=== PATIENT | male | born 1955 | race Caucasian/White ===

== ENCOUNTER 2019-09-22 16:29 | Emergency (ER) | payer BC, OTHER ==
[~2019-09-22] VITALS: Ht 182.8 cm; Wt 94.1 kg
--- NOTE | 2019-09-22 17:44 | ED Chest Pain ---
General Chief Complaint: Psych/Social Disorder Stated Complaint: SHAKING,DIZZINESS,NAUSATED Nursing Triage Note: C/O SHAKING, DIZZY,NAUSEA, FEELING OF IMPENDING DOOM. "IM NOT SURE WHAT IS WRONG BUT SOMETHING FEEL LIKE ITS WRONG" ALSO DIFFICULTY SLEEPING FOR MAONTHS AND SITUATIONAL CHANGES Nursing Sepsis Screen: No Definite Risk Source: patient Exam Limitations: no limitations (MATEO BELLA) History of Present Illness Date Seen by Provider: Sep 22, 2019 Time Seen by Provider: 17:30 Initial Comments Patient presents to ER by private conveyance with chief complaint of around noon experiencing a sharp stabbing pulsating pain in his left shoulder. It went away after several minutes. He is unable to reproduce it by movement, deep inspiration or palpation. He's been having a lot of problems with anxiety but denies any suicidal or homicidal ideation. He's had a lot of stress over the past year and a half since his left him and he had started new job and career. He lost 50 pounds over the past year because he stop drinking alcohol. He used to drink 12 beers a day but it's been almost a year and a half since he has been drinking. He does admit to having a single beer at a barbecue last weekend. He denies having history of panic attacks, anxiety disorder or taking any medications for this. He used to follow with Dr. Hopkins before he retired in [place], [place]. He has a history of a heart attack in the 90s and denies history of any methamphetamines or cocaine. He does admit to being a regular marijuana user up until the past year. He says he had a history of being borderline hypertensive but not on any medications for blood pressure, diabetes, cholesterol. (MATEO BELLA) Allergies and Home Medications Allergies Coded Allergies: No Known Drug Allergies (Unverified , 09/22/19) Patient Home Medication List Home Medication List Reviewed: Yes (MATEO BELLA) Review of Systems Review of Systems Constitutional: No chills, No diaphoresis EENTM: No Blurred Vision, No Double Vision Respiratory: Denies Cough, Denies Shortness of Air Cardiovascular: See HPI, Chest Pain (posterior left chest); Denies Edema, Denies Lightheadedness, Denies Palpitations Gastrointestinal: Denies Abdominal Pain, Denies Constipated, Denies Diarrhea, Denies Nausea Genitourinary: Denies Burning, Denies Discharge Musculoskeletal: see HPI, back pain; No joint pain Psychiatric/Neurological: Denies Anxiety, Denies Depressed (MATEO BELLA) Past Teujrwv-Bkmazb-Xdbeoo Hx Patient Social History Alcohol Use: Denies Use Recreational Drug Use: No Recent Foreign Travel: No Contact w/Someone Who Travel: No Recent Infectious Disease Expo: No Recent Hopitalizations: No Physical Abuse: No Sexual Abuse: No Mistreated: No Fear: No (MATEO BELLA) Past Medical History Surgeries: No Respiratory: No Cardiac: Yes Heart Attack Neurological: No Genitourinary: No Gastrointestinal: No Musculoskeletal: No Endocrine: No HEENT: No Cancer: No Psychosocial: No Integumentary: No Blood Disorders: No (MATEO BELLA) Physical Exam Vital Signs Vital Signs - First Documented 09/22/19 16:45 Temp 36.7 Pulse 78 Resp 18 B/P (MAP) 152/90 (110) Pulse Ox 96 (JOSEPH PRASAD MD) Vital Signs Capillary Refill : Less Than 3 Seconds (MATEO BELLA) Height, Weight, BMI Height: '" Weight: lbs. oz. kg; 28.00 BMI Method: General Appearance: No Apparent Distress, WD/WN, Anxious HEENT: PERRL/EOMI, TMs Normal, Normal ENT Inspection, Pharynx Normal, Moist Mucous Membranes Neck: Full Range of Motion, Normal Inspection, Non Tender Respiratory: Chest Non Tender, Lungs Clear, Normal Breath Sounds, No Accessory Muscle Use, No Respiratory Distress Cardiovascular: Regular Rate, Rhythm, No Edema, Normal Peripheral Pulses Gastrointestinal: Normal Bowel Sounds, No Organomegaly, Non Tender, Soft Extremity: Normal Capillary Refill, Normal Inspection, No Pedal Edema Neurologic/Psychiatric: Alert, Oriented x3 Skin: Normal Color, Warm/Dry (MATEO BELLA) Progress/Results/Core Measures Results/Orders Lab Results Laboratory Tests Test 09/22/19 17:42 09/22/19 19:27 Range/Units White Blood Count 7.3 4.3-11.0 10^3/uL Red Blood Count 5.05 4.35-5.85 10^6/uL Hemoglobin 14.7 13.3-17.7 G/DL Hematocrit 42 40-54 % Mean Corpuscular Volume 83 80-99 FL Mean Corpuscular Hemoglobin 29 25-34 PG Mean Corpuscular Hemoglobin Concent 35 32-36 G/DL Red Cell Distribution Width 12.4 10.0-14.5 % Platelet Count 182 130-400 10^3/uL Mean Platelet Volume 9.3 7.4-10.4 FL Neutrophils (%) (Auto) 62 42-75 % Lymphocytes (%) (Auto) 25 12-44 % Monocytes (%) (Auto) 9 0-12 % Eosinophils (%) (Auto) 4 0-10 % Basophils (%) (Auto) 1 0-10 % Neutrophils # (Auto) 4.5 1.8-7.8 X 10^3 Lymphocytes # (Auto) 1.8 1.0-4.0 X 10^3 Monocytes # (Auto) 0.7 0.0-1.0 X 10^3 Eosinophils # (Auto) 0.3 0.0-0.3 10^3/uL Basophils # (Auto) 0.0 0.0-0.1 10^3/uL Prothrombin Time 13.3 12.2-14.7 SEC INR Comment 1.0 0.8-1.4 Activated Partial Thromboplast Time 30 24-35 SEC Sodium Level 141 135-145 MMOL/L Potassium Level 3.7 3.6-5.0 MMOL/L Chloride Level 105 98-107 MMOL/L Carbon Dioxide Level 25 21-32 MMOL/L Anion Gap 11 5-14 MMOL/L Blood Urea Nitrogen 14 7-18 MG/DL Creatinine 0.85 0.60-1.30 MG/DL Estimat Glomerular Filtration Rate > 60 BUN/Creatinine Ratio 16 Glucose Level 98 70-105 MG/DL Calcium Level 9.3 8.5-10.1 MG/DL Corrected Calcium 8.9 8.5-10.1 MG/DL Magnesium Level 2.1 1.6-2.4 MG/DL Total Bilirubin 0.8 0.1-1.0 MG/DL Aspartate Amino Transf (AST/SGOT) 16 5-34 U/L Alanine Aminotransferase (ALT/SGPT) 20 0-55 U/L Alkaline Phosphatase 67 40-136 U/L Myoglobin 41.0 10.0-92.0 NG/ML Troponin I < 0.028 <0.028 NG/ML Total Protein 7.1 6.4-8.2 GM/DL Albumin 4.5 3.2-4.5 GM/DL (JOSEPH PRASAD MD) My Orders Orders - JOSEPH PRASAD MD Troponin I (09/22/19 19:25) (JOSEPH PRASAD MD) Medications Given in ED Current Medications Medications Dose Ordered Sig/Corey Route Start Time Stop Time Status Last Admin Dose Admin Aspirin 324 mg ONCE ONCE PO 09/22/19 17:45 09/22/19 17:46 DC 09/22/19 17:47 324 MG (JOSEPH PRASAD MD) Vital Signs/I&O 09/22/19 16:45 Temp 36.7 Pulse 78 Resp 18 B/P (MAP) 152/90 (110) Pulse Ox 96 (JOSEPH PRASAD MD) Blood Pressure Mean: 110 POS Progress Progress Note : Time: 17:43 Progress Note Given his history of [place] and possible hypertension he certainly appears hypertensive today but this could be related to anxiety and stress. We have discussed doing a workup to prove he is not having a heart attack today per his and his daughter's wishes. He has adamantly denied that he would stay in the hospital overnight. He does want follow up outpatient and wants to establish care with a primary care doctor. He has insomnia and wants help that. He has tried melatonin. We'll give him a list of local providers and have him follow-up with Dr. Early if he has normal troponin. We discussed doing a delta troponin at 7:30. (MATEO BELLA) Progress Note : Progress Note 1814: Assumed care of the patient pending repeat troponin. Everything is negative thus far. 1914: Is talking with the patient again and he is quite frustrated and does not want to stay. He states that he cannot sit here any longer. He was able to talk him into staying for the troponin which was drawn at that time and pending results now. He would like to leave as soon as he can. He denies any current pain. (JOSEPH PRASAD MD) Initial ECG Impression Date: Sep 22, 2019 Initial ECG Impression Time: 17:06 Initial ECG Rate: 69 Initial ECG Rhythm: Normal Sinus Initial ECG Intervals: Normal Initial ECG Impression: Normal, Nonspecific Changes Comment No ST elevation or depression. (MATEO BELLA) Diagnostic Imaging Diagonstic Imaging: Xray Plain Films/CT/US/NM/MRI: chest (1v) Reviewed: Reviewed by Me (MATEO BELLA) Transfer of Care Time: 18:12 Care transferred to: Dr. Prasad (MATEO BELLA) Departure Impression Primary Impression: Chest pain Qualified Codes: R07.9 - Chest pain, unspecified Disposition: 01 HOME, SELF-CARE Condition: Stable Departure-Patient Inst. Decision time for Depature: 19:50 (JOSEPH PRASAD MD) Referrals: ANGELA EARLY MD NO,LOCAL PHYSICIAN (PCP) Primary Care Physician Patient Instructions: Chest Pain Add. Discharge Instructions: All discharge instructions reviewed with patient and/or family. Voiced understanding. You do need further evaluation related to your chest pain and high blood pressure concerns. I highly recommend that you call Dr. Early's office in the morning for appointment within one week for recheck and further evaluation. He can continue your evaluation for both the heart and blood pressure. Return for worse pain, fever, vomiting, weakness, breathing problems, sweating or other concerns as needed. MATEO BELLA Sep 22, 2019 17:44 JOSEPH ROJAS MD Sep 22, 2019 19:28 POS
[2019-09-22] MEDS ORDERED: ASPIRIN 81 MG CHEW (CHILDREN'S ASA) PO ONE (17:45)
[2019-09-22 17:56] LABS: BASOPHILS % (AUTO) 1 % (0-10); EOSINOPHILS # (AUTO) 0.3 10^3/uL (0.0-0.3); EOSINOPHILS % (AUTO) 4 % (0-10); HEMATOCRIT 42 % (40-54); HEMOGLOBIN 14.7 G/DL (13.3-17.7); LYMPHOCYTES # (AUTO) 1.8 X 10^3 (1.0-4.0); LYMPHOCYTES % (AUTO) 25 % (12-44); MEAN CORPUSCULAR HEMOGLOBIN 29 PG (25-34); MEAN CORPUSCULAR HGB CONC 35 G/DL (32-36); MEAN CORPUSCULAR VOLUME 83 FL (80-99); MEAN PLATELET VOLUME 9.3 FL (7.4-10.4); MONOCYTES # (AUTO) 0.7 X 10^3 (0.0-1.0); MONOCYTES % (AUTO) 9 % (0-12); NEUTROPHILS # (AUTO) 4.5 X 10^3 (1.8-7.8); NEUTROPHILS % (AUTO) 62 % (42-75); PLATELET COUNT 182 10^3/uL (130-400); RED CELL DISTRIBUTION WIDTH 12.4 % (10.0-14.5); WHITE BLOOD COUNT 7.3 10^3/uL (4.3-11.0)
[2019-09-22 18:03] LABS: PROTHROMBIN TIME PATIENT 13.3 SEC (12.2-14.7)
[2019-09-22 18:10] LABS: ALANINE AMINOTRANSFERASE 20 U/L (0-55); ALBUMIN 4.5 GM/DL (3.2-4.5); ALKALINE PHOSPHATASE 67 U/L (40-136); BILIRUBIN,TOTAL 0.8 MG/DL (0.1-1.0); BUN/CREATININE RATIO 16; CALCIUM 9.3 MG/DL (8.5-10.1); CARBON DIOXIDE 25 MMOL/L (21-32); CHLORIDE 105 MMOL/L (98-107); CREATININE SERUM 0.85 MG/DL (0.60-1.30); GFR ESTIMATED > 60; GLUCOSE 98 MG/DL (70-105); MAGNESIUM 2.1 MG/DL (1.6-2.4); POTASSIUM 3.7 MMOL/L (3.6-5.0); SODIUM 141 MMOL/L (135-145); TOTAL PROTEIN 7.1 GM/DL (6.4-8.2)
--- NOTE | 2019-09-22 18:11 | Diagnostic Imaging Report ---
INDICATION: Shaking, dizzy, nausea. TECHNIQUE: Single-view chest at 05:25 p.m. CORRELATION STUDY: None. FINDINGS: Heart size and mediastinal configuration is slightly prominent. Vasculature is within normal limits. The lungs are clear with no consolidating infiltrate. There is no significant effusion or pneumothorax. IMPRESSION: 1. Negative for acute abnormality of the chest. Dictated by: Dictated on workstation # [id number]
[2019-09-22 20:08] VITALS: BP 138/94
== END 2019-09-22 20:08 | disposition home or self-care (01) ==
LOC: ER 16:32
DX: R07.9 Chest pain, unspecified (principal); I25.2 Old myocardial infarction
CPT/HCPCS: 36415; 71045; 80053; 83735; 83874; 84484; 85025; 85610; 85730; 93005

== ENCOUNTER → 2020-03-30 | Outpatient (CLI) | payer BC ==
--- NOTE | 2020-03-30 13:12 | Diagnostic Imaging Report ---
INDICATION: Low back pain. Time of exam 1:04 PM Frontal and lateral views of the lumbar spine demonstrate normal curvature and alignment. Generalized degenerative disc disease is seen with variable disc space narrowing and marginal spurring. No acute fracture is identified. IMPRESSION: Spondylosis. No acute bony abnormality is detected. Dictated by: Dictated on workstation # [id number]
== END ==
LOC: RAD FS 12:49
PROVIDERS: ATTEND Nurse Practitioner
DX: M47.816 Spondylosis without myelopathy or radiculopathy, lumbar region (principal)
CPT/HCPCS: 72100

== ENCOUNTER → 2021-04-05 | Outpatient (CLI) | payer BC ==
--- NOTE | 2021-04-05 13:48 | Diagnostic Imaging Report ---
INDICATION: Right knee effusion, right knee pain. COMPARISON: None available. TECHNIQUE: Three radiographs of the right knee dated 04/05/2021. FINDINGS: No acute fracture or dislocation. No destructive osseous process. Mild medial joint space narrowing. Chronic appearing minimal fragmentation of the tibial tuberosity. Small knee joint effusion. No suspicious radiopaque foreign body. IMPRESSION: No acute osseous abnormality with minimal degenerative changes for age. Small knee joint effusion is present. Chronic appearing minimal fragmentation of the tibial tuberosity. Should symptoms persist, further evaluation with an MRI of the knee could be obtained, particularly given the presence of an underlying knee joint effusion. Dictated by: Dictated on workstation # [id number]
== END ==
LOC: RAD FS 10:26
PROVIDERS: ATTEND Nurse Practitioner Family
DX: M25.461 Effusion, right knee (principal)
CPT/HCPCS: 73562

== ENCOUNTER → 2021-05-20 | Outpatient (CLI) | payer BC, OTHER ==
[2021-05-20 10:19] LABS: BILIRUBIN,TOTAL 0.7 MG/DL (0.1-1.0); BUN/CREATININE RATIO 19; CALCIUM 8.8 MG/DL (8.5-10.1); CARBON DIOXIDE 25 MMOL/L (21-32); CHLORIDE 106 MMOL/L (98-107); CREATININE SERUM 0.85 MG/DL (0.60-1.30); GFR ESTIMATED > 60; GLUCOSE 103 MG/DL (70-105); SODIUM 140 MMOL/L (135-145)
[2021-05-20 10:20] LABS: ALANINE AMINOTRANSFERASE 11 U/L (0-55); ALBUMIN 4.3 GM/DL (3.2-4.5); ALKALINE PHOSPHATASE 83 U/L (40-136); HEMATOCRIT 41 % (40-54); HEMOGLOBIN 14.1 G/DL (13.3-17.7); MEAN CORPUSCULAR HEMOGLOBIN 29 PG (25-34); MEAN CORPUSCULAR HGB CONC 35 G/DL (32-36); MEAN CORPUSCULAR VOLUME 85 FL (80-99); TOTAL PROTEIN 6.7 GM/DL (6.4-8.2); WHITE BLOOD COUNT 5.5 10^3/uL (4.3-11.0)
[2021-05-20 10:21] LABS: MEAN PLATELET VOLUME 9.5 FL (7.4-10.4); PLATELET COUNT 182 10^3/uL (130-400)
[2021-05-20 14:52] LABS: CHOLESTEROL 206 MG/DL (< 200); HDL CHOLESTEROL 42 MG/DL (40-60); TRIGLYCERIDES 356 MG/DL (<150); VLDL CHOLESTEROL 71 MG/DL (5-40)
== END ==
LOC: LAB FS 08:27
PROVIDERS: ATTEND Internal Medicine Cardiovascular Disease
DX: I25.10 Atherosclerotic heart disease of native coronary artery without angina pectoris (principal)
CPT/HCPCS: 36415; 80053; 80061; 85027

== ENCOUNTER → 2021-05-24 | Outpatient (CLI) | payer BC, OTHER | LOC: CARD 10:00 | PROVIDERS: ATTEND Internal Medicine Cardiovascular Disease | DX: I08.0 Rheumatic disorders of both mitral and aortic valves (principal); I25.2 Old myocardial infarction | CPT/HCPCS: 93306 ==

== ENCOUNTER → 2021-07-15 | Outpatient (CLI) | payer BC ==
[2021-07-15 12:45] LABS: BILIRUBIN,TOTAL 0.9 MG/DL (0.1-1.0); CALCIUM 9.2 MG/DL (8.5-10.1); POTASSIUM 4.1 MMOL/L (3.6-5.0); TOTAL PROTEIN 6.9 GM/DL (6.4-8.2)
[2021-07-15 12:46] LABS: ALBUMIN 4.3 GM/DL (3.2-4.5)
== END ==
LOC: LAB FS 10:23
PROVIDERS: ATTEND Internal Medicine Cardiovascular Disease
DX: E78.2 Mixed hyperlipidemia (principal)
CPT/HCPCS: 36415; 80053; 80061

== ENCOUNTER → 2021-09-02 | Outpatient (CLI) | payer BC ==
[2021-09-02 13:28] LABS: CREATININE SERUM 0.82 MG/DL (0.60-1.30)
[2021-09-02 13:29] LABS: ALBUMIN 4.5 GM/DL (3.2-4.5); BILIRUBIN,TOTAL 0.7 MG/DL (0.1-1.0); CALCIUM 9.1 MG/DL (8.5-10.1); TOTAL PROTEIN 6.8 GM/DL (6.4-8.2)
== END ==
LOC: LAB FS 10:17
PROVIDERS: ATTEND Internal Medicine Cardiovascular Disease
DX: E78.2 Mixed hyperlipidemia (principal)
CPT/HCPCS: 36415; 80053; 80061

== ENCOUNTER → 2022-03-17 | Outpatient (CLI) | payer BC ==
--- NOTE | 2022-03-17 17:08 | Diagnostic Imaging Report ---
EXAMINATION: Lumbar spine radiograph. EXAM DATE: 03/17/2022 COMPARISON: 03/30/2020 HISTORY: Thoracic and lumbar back pain TECHNIQUE: 3 views of the liver spine. FINDINGS: Vertebral body heights and alignment are normal. There is multilevel lumbar spondylosis. There is multilevel facet hypertrophy. No acute fracture. IMPRESSION: Degenerative changes of the lumbar spine without acute osseous abnormality. Dictated by: Dictated on workstation # [id number]
--- NOTE | 2022-03-17 18:08 | Diagnostic Imaging Report ---
INDICATION: Pain COMPARISON: Imaging from the same date TECHNIQUE: 3 radiographs of the thoracic spine dated 03/17/2022. FINDINGS: Alignment of the thoracic spine is well maintained. Besides mild scattered endplate degenerative changes, vertebral body heights are otherwise well-maintained. Mild multilevel disc space height loss without severe disc space height loss. Multilevel lateral and anterior osteophyte formation, greatest within the lower thoracic spine. Scattered facet joint degenerative changes. IMPRESSION: No acute osseous abnormality with mild scattered degenerative changes present. Dictated by: Dictated on workstation # [id number]
== END ==
LOC: RAD FS 16:20
PROVIDERS: ATTEND Nurse Practitioner Family
DX: M47.814 Spondylosis without myelopathy or radiculopathy, thoracic region (principal); M47.816 Spondylosis without myelopathy or radiculopathy, lumbar region
CPT/HCPCS: 72072; 72100

== ENCOUNTER → 2022-06-30 | Outpatient (CLI) | payer BC ==
--- NOTE | 2022-06-30 14:07 | Diagnostic Imaging Report ---
INDICATION: Cellulitis COMPARISON: None available. TECHNIQUE: Three radiographs of the right foot dated 06/30/2022 FINDINGS: No acute fracture or dislocation. No destructive osseous process. Scattered osseous degenerative changes, greatest involving the 1st MTP joint and 1st interphalangeal joint. The 1st interphalangeal joint demonstrates moderate osteophyte formation. Soft tissue swelling of the 3rd digit is identified without associated osseous destruction. No suspicious radiopaque foreign body. IMPRESSION: Soft tissue swelling of the 3rd digit without radiopaque foreign body or osseous destruction. If there remains clinical concern for osteomyelitis, follow-up radiographs in 10-14 days would be recommended. [id number] scattered degenerative changes, greatest involving the 1st ray, as above. Dictated by: Dictated on workstation # [id number]
== END ==
LOC: RAD FS 13:05
PROVIDERS: ATTEND Nurse Practitioner Family
DX: M19.071 Primary osteoarthritis, right ankle and foot (principal); L03.031 Cellulitis of right toe
CPT/HCPCS: 73630